=== PATIENT | female | born 1995 | race Caucasian/White ===

== ENCOUNTER 2018-11-06 14:28 | Emergency (ER) | payer OTHER ==
--- NOTE | 2018-11-06 15:12 | RAD REPORT ---
EXAM DESCRIPTION: US - Abdomen Exam Limited - 11/06/2018 3:01 pm CLINICAL HISTORY: ABD PAIN COMPARISON: ABDOMINAL EXAM LIMITED dated 11/07/2013 FINDINGS: The gallbladder demonstrates no gallstones. No pericholecystic fluid or gallbladder wall t hickening. The common bile duct is normal measuring 2 mm. The liver demonstrates no findings of intrahepatic biliary dilatation. IMPRESSION: Unremarkable examination.
[2018-11-06 16:04] LABS: Absolute Lymphocytes (CBC) 3.3 K/uL (0.7-4.9); Absolute Monocytes 0.7 K/uL (0.1-1.3); Absolute Neutrophil 5.2 K/uL (1.8-8.0); Basophils % 0.8 % (0-1.3); Eosinophils % 0.9 % (0-4.4); Hematocrit 43.3 % (36.0-45.0); MPV 8.1 fL (7.6-11.3); Monocytes % 7.1 % (3.3-12.3); RBC Red Blood Cell Count 5.21 M/uL (3.86-4.86)
[2018-11-06] MEDS ORDERED: FAMOTIDINE 20 MG/2 ML VIAL IV ONE (16:06)
[2018-11-06] MEDS ORDERED: NA CHLORIDE 0.9% 1,000 ML ONE (16:06)
[2018-11-06] MEDS ORDERED: ONDANSETRON 4 MG/2 ML VIAL ONE (16:06)
[2018-11-06 16:27] LABS: ALT/SGPT 30 U/L (12-78); AST/SGOT 16 U/L (15-37); Alkaline Phosphatase 124 U/L (45-117); BUN Blood Urea Nitrogen 6 mg/dL (7-18); Bicarbonate 24 mmol/L (21-32); Bilirubin Direct < 0.1 mg/dL (0-0.2); Bilirubin Total 0.3 mg/dL (0.2-1.0); Glucose Level 83 mg/dL (74-106); Lipase 95 U/L (73-393); Potassium 3.8 mmol/L (3.5-5.1); Protein, Total 7.6 g/dL (6.4-8.2); Sodium Level 142 mmol/L (136-145)
--- NOTE | 2018-11-06 17:19 | RAD REPORT ---
EXAM DESCRIPTION: CT - Abdomen Pelvis W Contrast - 11/06/2018 5:10 pm CLINICAL HISTORY: Abdominal pain vomiting and right upper quadrant pain COMPARISON: November 06, 2018 ultrasound TECHNIQUE: Computed axial tomography of the abdomen pelvis was obtained. 100 cc Isovue-300 was admin istered intravenously. Oral contrast was not requested which limits evaluation of bowel. All CT scans are performed using dose optimization technique as appropriate and may include automated exposure control or mA/KV adjustment according to patient size. FINDINGS: The liver, spleen, pancreas, adrenal and kidneys appear unremarkable. There is no evidence of diverticulitis. A normal appendix An adnexal mass is not seen. Tiny umbilical hernia IMPRESSION: No acute abnormality is displayed.
--- NOTE | 2018-11-06 17:32 | ER ---
Nurse's Notes [facility] Name: Malathi Sahu Age: 23 yrs Sex: Female : 1995 Arrival Date: 11/06/2018 Time: 14:30 Bed 25 Private MD: Wilberto Sun T Diagnosis: Unspecified abdominal pain;Nausea and vomiting;Diarrhea, unspecified Presentation: 11/06 14:36 Presenting complaint: Patient states: Sent by Dr. Sun for possible "hot gallbladder". ss Pt c/o RUQ pain with N/V/D x 2 months. Transition of care: patient was not received from another setting of care. Onset of symptoms was August 2018. Risk Assessment: Do you want to hurt yourself or someone else? Patient reports no desire to harm self or others. Initial Sepsis Screen: Does the patient meet any 2 criteria? HR > 90 bpm. Does the patient have a suspected source of infection? No. Patient's initial sepsis screen is negative. Care prior to arrival: None. 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 - Social history:: Smoking status: Patient uses tobacco products, smokes one pack cigarettes per day. - Ebola Screening: : Patient denies exposure to infectious person Patient denies travel to an Ebola-affected area in the 21 days before illness onset. Screenin:03 Abuse screen: Denies threats or abuse. Denies injuries from another. Nutritional rv screening: No deficits noted. Tuberculosis screening: No symptoms or risk factors identified. Fall Risk None identified. Assessment: 16:02 General: Appears in no apparent distress. comfortable, Behavior is calm, cooperative. rv Pain: Complains of pain in abdomen. Neuro: Level of Consciousness is awake, alert, obeys commands, Oriented to person, place, time, situation. Cardiovascular: Capillary refill < 3 seconds. Respiratory: Airway is patent. GI: No signs and/or symptoms were reported involving the gastrointestinal system. : No signs and/or symptoms were reported regarding the genitourinary system. EENT: No signs and/or symptoms were reported regarding the EENT system. Derm: Skin is intact. Musculoskeletal: No signs and/or symptoms reported regarding the musculoskeletal system. 17:30 Reassessment: Patient appears in no apparent distress at this time. Patient and/or rv family updated on plan of care and expected duration. Pain level reassessed. Patient is alert, oriented x 3, equal unlabored respirations, skin warm/dry/pink. Vital Signs: 14:39 BP 147 / 68; Pulse 116; Resp 18; Temp 98.5(TE); Pulse Ox 98% on R/A; Weight 119.29 kg; ss Height 5 ft. 7 in. (170.18 cm); 16:00 BP 121 / 69 RA Supine; Pulse 104; Resp 16 S; Pulse Ox 97% on R/A; rv 16:30 BP 137 / 84 RA Supine; Pulse 91; Resp 19 S; Pulse Ox 100% on R/A; rv 18:07 BP 101 / 69; Pulse 88; Resp 18; Pulse Ox 100% ; rv 14:39 Body Mass Index 41.19 (119.29 kg, 170.18 cm) ED Course: 14:30 Patient arrived in ED. ag5 14:31 Wilberto Sun MD is Private Physician. ag5 14:37 Triage completed. ss 14:39 Arm band placed on right wrist. ss 15:00 Ultrasound completed. aa4 15:00 Note: PT RETURNED TO WAITING ROOM. aa4 15:01 US Abdomen Limited In Process Unspecified. EDMS 15:02 Leonardo Neil NP is PHCP. pm1 15:02 Los Dickerson MD is Attending Physician. pm1 15:34 Radiology exam delayed due to lab results not completed at this time. test vm2 not completed at this time. 15:44 Ac Shin, JOSE ANGEL is Primary Nurse. rv 15:50 Inserted saline lock: 22 gauge in left forearm, using aseptic technique. Blood rv collected. 16:03 Patient has correct armband on for positive identification. Bed in low position. Call rv light in reach. Side rails up X 1. Adult w/ patient. Pulse ox on. NIBP on. 16:11 Radiology exam delayed due to lab results not completed at this time. (BUN/Creatinine). nj 17:[address] via wheelchair. 2 17:10 CT Abd/Pelvis - W/Contrast: IV contrast only In Process Unspecified. EDMS 18:05 No provider procedures requiring assistance completed. IV discontinued, intact, rv bleeding controlled, No redness/swelling at site. Pressure dressing applied. Administered Medications: 15:59 Drug: NS 0.9% 1000 ml Route: IV; Rate: 1000 ml; Site: left forearm; rv 18:04 Follow up: IV Status: Completed infusion; IV Intake: 1000ml rv 15:59 Drug: Zofran 4 mg Route: IVP; Site: left forearm; rv 18:04 Follow up: Response: No adverse reaction rv 15:59 Drug: Pepcid 20 mg Route: IVP; Site: left forearm; rv 18:04 Follow up: Response: No adverse reaction rv 17:30 Drug: GI Cocktail without - (Maalox Suspension 30 ml, Lidocaine Liquid 2 % 15 rv ml) Route: PO; 18:04 Follow up: Response: No adverse reaction rv Intake: 18:04 IV: 1000ml; Total: 1000ml. rv Outcome: 17:32 Discharge ordered by . pm1 18:05 Discharged to home ambulatory. rv 18:05 Condition: good 18:05 Discharge instructions given to patient, Instructed on discharge instructions, follow up and referral plans. medication usage, Demonstrated understanding of instructions, follow-up care, medications, Prescriptions given X 2. 18:07 Patient left the ED. rv Signatures: Dispatcher [employer] EDN[place] Jennifer Beard aa4 Renee Restrepo, RN RN ss Leonardo Neil, MARLY TORSION SPRING COILING MACHINE SETTER pm1 Gennaro Taylor Victoria 2 Ac Shin RN RN Michaelle Vallejo 5
--- NOTE | 2018-11-06 17:32 | EDPHYS ---
Physician Documentation [facility] Name: Malathi Sahu Age: 23 yrs Sex: Female : 1995 Arrival Date: 11/06/2018 Time: 14:30 Bed 25 Private MD: Wilberto Sun T ED Physician Los Dickerson HPI: 11/06 16:23 This 23 yrs old Female presents to ER via Ambulatory with complaints of RUQ pm1 abdominal pain. 16:23 The patient presents with abdominal pain in the right upper quadrant. Onset: The pm1 symptoms/episode began/occurred 2 month(s) ago. The symptoms do not radiate. Associated signs and symptoms: Pertinent positives: nausea, vomiting, and diarrhea, Pertinent negatives: chest pain, constipation, dysuria, fever, shortness of breath, vaginal discharge. The symptoms are described as achy. Modifying factors: The symptoms are alleviated by nothing, the symptoms are aggravated by food. Severity of pain: in the emergency department the pain is actually worse. The patient has not experienced similar symptoms in the past. The patient has been recently seen by a physician: the patient's primary care provider. Patient with on and off RUQ abdominal pain for the past 2 months. Patient reports on and off vomiting and diarrhea for the past 2 months. Patient initially thought it was related to stomach virus. Pain caused by eating food. Saw PCP today and instructed to report to the ER for evaluation of gallbladder. 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 - Social history:: Smoking status: Patient uses tobacco products, smokes one pack cigarettes per day. - Ebola Screening: : Patient denies exposure to infectious person Patient denies travel to an Ebola-affected area in the 21 days before illness onset. ROS: 16:23 Constitutional: Negative for fever, chills, and weight loss, Eyes: Negative for injury, pm1 pain, redness, and discharge, ENT: Negative for injury, pain, and discharge, Neck: Negative for injury, pain, and swelling, Cardiovascular: Negative for chest pain, palpitations, and edema, Respiratory: Negative for shortness of breath, cough, wheezing, and pleuritic chest pain. 16:23 Back: Negative for injury and pain, : Negative for injury, bleeding, discharge, and swelling, MS/Extremity: Negative for injury and deformity, Skin: Negative for injury, rash, and discoloration, Neuro: Negative for headache, weakness, numbness, tingling, and seizure. 16:23 Abdomen/GI: Positive for abdominal pain, nausea, vomiting, and diarrhea, Negative for constipation, hematemesis, rectal bleeding. Exam: 16:23 Constitutional: This is a well developed, well nourished patient who is awake, alert, pm1 and in no acute distress. Head/Face: Normocephalic, atraumatic. Eyes: Pupils equal round and reactive to light, extra-ocular motions intact. Lids and lashes normal. Conjunctiva and sclera are non-icteric and not injected. Cornea within normal limits. Periorbital areas with no swelling, redness, or edema. ENT: Nares patent. No nasal discharge, no septal abnormalities noted. Tympanic membranes are normal and external auditory canals are clear. Oropharynx with no redness, swelling, or masses, exudates, or evidence of obstruction, uvula midline. Mucous membranes moist. Neck: Trachea midline, no thyromegaly or masses palpated, and no cervical lymphadenopathy. Supple, full range of motion without nuchal rigidity, or vertebral point tenderness. No Meningismus. Chest/axilla: Normal chest wall appearance and motion. Nontender with no deformity. No lesions are appreciated. Cardiovascular: Regular rate and rhythm with a normal S1 and S2. No gallops, murmurs, or rubs. Normal PMI, no JVD. No pulse deficits. Respiratory: Lungs have equal breath sounds bilaterally, clear to auscultation and percussion. No rales, rhonchi or wheezes noted. No increased work of breathing, no retractions or nasal flaring. 16:23 Back: No spinal tenderness. No costovertebral tenderness. Full range of motion. Skin: Warm, dry with normal turgor. Normal color with no rashes, no lesions, and no evidence of cellulitis. MS/ Extremity: Pulses equal, no cyanosis. Neurovascular intact. Full, normal range of motion. 16:23 Abdomen/GI: Inspection: obese Bowel sounds: normal, Palpation: abdomen is soft and non-tender, in all quadrants, mass, is not appreciated, rebound tenderness, is not appreciated. 16:23 Neuro: Orientation: is normal, Motor: is normal, Sensation: is normal, no obvious gross deficits, Gait: is steady, at a normal pace, without difficulty. Vital Signs: 14:39 BP 147 / 68; Pulse 116; Resp 18; Temp 98.5(TE); Pulse Ox 98% on R/A; Weight 119.29 kg; ss Height 5 ft. 7 in. (170.18 cm); 16:00 BP 121 / 69 RA Supine; Pulse 104; Resp 16 S; Pulse Ox 97% on R/A; rv 16:30 BP 137 / 84 RA Supine; Pulse 91; Resp 19 S; Pulse Ox 100% on R/A; rv 18:07 BP 101 / 69; Pulse 88; Resp 18; Pulse Ox 100% ; rv 14:39 Body Mass Index 41.19 (119.29 kg, 170.18 cm) ss MDM: 15:03 Patient medically screened. [facility] 16:23 Data reviewed: vital signs. pm1 17:25 Data interpreted: Pulse oximetry: on room air is 98 %. Interpretation: normal. pm1 Counseling: I had a detailed discussion with the patient and/or guardian regarding: the historical points, exam findings, and any diagnostic results supporting the discharge/admit diagnosis. 17:30 Counseling: I had a detailed discussion with the patient and/or guardian regarding: lab pm1 results, radiology results, the need for outpatient follow up, for definitive care, a oval or circular glass cutter, possible endoscopy, to return to the emergency department if symptoms worsen or persist or if there are any questions or concerns that arise at home. 11/06 15:22 Order name: Basic Metabolic Panel; Complete Time: 16:29 pm1 11/06 15:22 Order name: CBC with Diff; Complete Time: 16:22 pm1 11/06 15:22 Order name: Creatinine for Radiology; Complete Time: 16:57 pm1 11/06 15:22 Order name: Hepatic Function; Complete Time: 16:29 pm1 11/06 15:22 Order name: Lipase; Complete Time: 16:29 pm1 11/06 15:36 Order name: Urine Dipstick--Ancillary (enter results) 11/06 14:48 Order name: US Abdomen Limited; Complete Time: 15:13 kb 11/06 15:22 Order name: IV Saline Lock; Complete Time: 17:05 pm1 11/06 15:29 Order name: CT Abd/Pelvis - W/Contrast: IV contrast only; Complete Time: 17:24 pm1 11/06 15:36 Order name: Urine --Ancillary (enter results) 11/06 15:22 Order name: Labs collected and sent; Complete Time: 17:05 pm1 11/06 15:22 Order name: Urine Dipstick-Ancillary (obtain specimen); Complete Time: 17:05 pm1 11/06 15:22 Order name: Urine Test (obtain specimen); Complete Time: 17:05 pm1 Administered Medications: 15:59 Drug: NS 0.9% 1000 ml Route: IV; Rate: 1000 ml; Site: left forearm; rv 18:04 Follow up: IV Status: Completed infusion; IV Intake: 1000ml rv 15:59 Drug: Zofran 4 mg Route: IVP; Site: left forearm; rv 18:04 Follow up: Response: No adverse reaction rv 15:59 Drug: Pepcid 20 mg Route: IVP; Site: left forearm; rv 18:04 Follow up: Response: No adverse reaction rv 17:30 Drug: GI Cocktail without - (Maalox Suspension 30 ml, Lidocaine Liquid 2 % 15 rv ml) Route: PO; 18:04 Follow up: Response: No adverse reaction rv Disposition: 11/07 07:01 Co-signature as Attending Physician, Los Dickerson MD I agree with the assessment and carolin plan of care. Disposition: 11/06/18 17:32 Discharged to Home. Impression: Unspecified abdominal pain, Nausea and vomiting, Diarrhea, unspecified. - Condition is Stable. - Discharge Instructions: Abdominal Pain, Adult. - Prescriptions for Pepcid 20 mg Oral Tablet - take 1 tablet by ORAL route every 12 hours for 10 days; 20 tablet. Zofran 4 mg Oral Tablet - take 1 tablet by ORAL route every 12 hours As needed; 20 tablet. - Medication Reconciliation Form, Thank You Letter, Antibiotic Education, Prescription Opioid Use form. - Follow up: Emergency Department; When: As needed; Reason: Worsening of condition. Follow up: Private Physician; When: 2 - 3 days; Reason: Recheck today's complaints, Continuance of care, Re-evaluation by your physician. - Problem is new. - Symptoms have improved. Signatures: Dispatcher [employer] EDMS Los Dickerson MD MD cha Smirch, Shelby, JOSE ANGEL RN ss Leonardo Neil, TOILET ATTENDANT TOILET ATTENDANT pm1 Ac Shin RN RN rv Corrections: (The following items were deleted from the chart) 11/06 18:07 17:32 11/06/2018 17:32 Discharged to Home. Impression: Unspecified abdominal pain; rv Nausea and vomiting; Diarrhea, unspecified. Condition is Stable. Forms are Medication Reconciliation Form, Thank You Letter, Antibiotic Education, Prescription Opioid Use. Follow up: Emergency Department; When: As needed; Reason: Worsening of condition. Follow up: Private Physician; When: 2 - 3 days; Reason: Recheck today's complaints, Continuance of care, Re-evaluation by your physician. Problem is new. Symptoms have improved. pm1
[2018-11-06] MEDS ORDERED: MAGNE/ALUM HYDROXD 30 ML UCUP ONE (17:44)
[2018-11-06] MEDS ORDERED: LIDOCAINE VISCOUS 2% SOLN 15 ML UDC ONE (17:44)
[2018-11-06 19:02] VITALS: TEMP 98.5
[2018-11-06 19:04] VITALS: O2SAT 100
[2018-11-06 19:06] VITALS: BP 101/69
[2018-11-06 20:09] LABS: Urine Blood NEGATIVE (NEG); Urine Glucose NEGATIVE (NEG); Urine Protein NEGATIVE (NEG)
== END 2018-11-06 18:07 | disposition home or self-care (01) ==
LOC: ER 14:28
DX: R10.9 Unspecified abdominal pain (principal); R11.2 Nausea with vomiting, unspecified; R19.7 Diarrhea, unspecified; F32.9 Major depressive disorder, single episode, unspecified; F41.9 Anxiety disorder, unspecified; F17.210 Nicotine dependence, cigarettes, uncomplicated; Z79.899 Other long term (current) drug therapy
CPT/HCPCS: 36415; 74177; 76705; 80048; 80076; 81003; 81025; 83690; 85025; 96361; 96374; 96375; 99284; J2405; J7030; Q9967

== ENCOUNTER 2023-01-02 06:14 | Emergency (ER) | payer BC ==
--- OUTSIDE RECORDS SUMMARY | 2023-01-02 06:18 | XMS REPORT | Continuity of Care Document ---
:1995 Author Organization [facility] t Address [address] [place] [id number] Care Team Providers Name Role Phone PCP, PATIENT DOES NOT HAVE A Primary Care Physician UnavailARMINDA Kelley Attending Clinician Unavailable ARMINDA GAINES Attending Clinician Unavailable Celia Nj PA-C Attending Clinician Luisana Carrillo MD Attending Clinician LUISANA CARRILLO Attending Clinician Unavailable CELIA NJ Attending Clinician Unavailable Doctor Unassigned, [place] Attending Clinician Unavailable Nurse, [facility] Attending Clinician Unavailable Payers Payer Name Policy Type Policy Number Effective Date Expiration Date S ource Problems Condition Condition Condition Status Onset Resolution Last Treating Co mments Source Name Details Category Date Date Treatment Clinician Date Presence Presence Disease Active 2019-07 Unive rs of 52 mg of 52 mg 1-23 ity of [place] trel-relea trel-relea 00 Me dical sing sing Branch intrauteri intrauteri ne device ne device (IUD) (IUD) Morbid Morbid Disease Active 2018-07 Univers obesity obesity 1-20 [place] of [place] body [place] mass index mass index 00 [place] dical of of Branch 40.0-49.9 40.0-49.9 Allergies, Adverse Reactions, Alerts Allergy Allergy Status Severity Reaction(s) Onset Inactive Treating Comm ents Source Name Type Date Date Clinician CEFPROZI DRUG Active Swelling 2018-07 Univer s L INGREDI -20 ity of 00:00: [address] CEFDINIR DRUG Active Swelling 2018-07 Univer s INGREDI - ity of 00:00: [place] 00 Medical Branch Cefprozi Propensi Active Swelling 2018-07 Univ ers l ty to 1-20 ity of adverse 00:00: [place] reaction Medical s Branch Cefdinir Propensi Active Swelling 2018-07 Univ ers ty to 1-20 ity of adverse 00:00: [place] reaction 00 Medical s Branch Social History Social Habit Start Date Stop Date Quantity Comments Source Exposure to Not sure University of SARS-CoV-2 [facility] (event) Branch History of Cigarette Smoker Universi ty of tobacco use [facility] Sex Assigned At Universit y of [facility] Tobacco use and 2020-06-16 2020-06-16 Never used Universit y of exposure 00:00:00 00:00:00 [facility] Alcohol intake 2020-06-16 2020-06-16 Current drinker of Un iversity of 00:00:00 00:00:00 alcohol (finding) [facility] Cigarettes smoked 2020-06-16 2020-06-16 Univers ity of current (pack per 00:00:00 00:00:00 [facility] ) - Reported Branch Tobacco Comment 2019-06-13 2019-06-13 vape Universit y of 00:00:00 00:00:00 [facility] Alcohol Comment 2019-06-13 2019-06-13 occcasionaly Univers ity of 00:00:00 00:00:00 [facility] Smoking Status Start Date Stop Date Source Current every day smoker 2020-06-16 00:00:00 Uni versity of [facility] Medications Ordered Filled Start Stop Current Ordering Indication Dosage Frequency Signature Comments Components Source Medication Medication Date Date Medication? 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 Mon Branch 06/16/20 at 2030, Routine miSOPROStoL 2020- Yes [id number] Take one Univers 200 mcg 1-11 tablet ity of tablet 00:00: night [place] 00 before Medical procedure, Branch then take one tablet morning of procedure miSOPROStoL 2020- Yes [id number] Take one Univers 200 mcg 1-11 tablet ity of tablet 00:00: night [place] 00 before Medical procedure, Branch then take one tablet morning of procedure miSOPROStoL 2020- Yes [id number] Take one Univers 200 mcg 1-11 tablet ity of tablet 00:00: night [place] 00 before Medical procedure, Branch then take one tablet morning of procedure miSOPROStoL 2019- Yes [id number] Take one Univers 200 mcg 1-11 tablet ity of tablet 00:00: night [place] 00 before Medical procedure, Branch then take one tablet morning of procedure miSOPROStoL 2020-1 Yes [id number] Take one Univers 200 mcg 1-11 tablet ity of tablet 00:00: night [place] 00 before Medical procedure, Branch then take one tablet morning of procedure miSOPROStoL 2020- Yes [id number] Take one Univers 200 mcg 1-11 tablet ity of tablet 00:00: night [place] 00 before Medical procedure, Branch then take one tablet morning of procedure miSOPROStoL 2020- Yes [id number] Take one Univers 200 mcg 1-11 tablet ity of tablet 00:00: night [place] 00 before Medical procedure, Branch then take one tablet morning of procedure miSOPROStoL 2020- Yes [id number] Take one Univers 200 mcg 1-11 tablet ity of tablet 00:00: night [place] 00 before Medical procedure, Branch then take one tablet morning of procedure medroxyPROG 2019-0 2020- No 150mg Univ ers ESTERone 03-17 08-24 ity of (DEPO-PROVE 21:00: 20:09 [place] RA) 00 :00 Medical injection Branch 150 mg medroxyPROG 2020-0 2020- No 150mg 150 mg, U nivers ESTERone 8-24 08-24 Intramuscu ity of (DEPO-PROVE 21:00: 20:09 lar, ONCE, [place] RA) 00 :00 1 dose, Medical injection Mon Branch 150 mg 03/17/20 at 1600, Routine asenapine 2020-[address] 10 Univ ers maleate 8-24 mg under ity of (SAPHRIS) 19:58: [place] tongue [place] 10 mg 30 daily. Medical sublinguql Branch tablet asenapine 2020-[address] 10 Univ ers maleate 8-24 mg under ity of (SAPHRIS) 19:58: [place] tongue [place] 10 mg 30 daily. Medical sublinguql Branch tablet asenapine 2020-[address] 10 Univ ers maleate 8-24 mg under ity of (SAPHRIS) 19:58: [place] tongue [place] 10 mg 30 daily. Medical sublinguql Branch tablet asenapine 2020-[address] 10 Univ ers maleate 8-24 mg under ity of (SAPHRIS) 19:58: the tongue [place] 10 mg 30 daily. Medical sublinguql Branch tablet asenapine 2020-[address] 10 Univ ers maleate 8-24 mg under ity of (SAPHRIS) 19:58: [place] tongue [place] 10 mg 30 daily. Medical sublinguql Branch tablet asenapine 2020-[address] 10 Univ ers maleate 8-24 mg under ity of (SAPHRIS) 19:58: [place] tongue [place] 10 mg 30 daily. Medical sublinguql Branch tablet asenapine 2020-[address] 10 Univ ers maleate 8-24 mg under ity of (SAPHRIS) 19:58: [place] tongue [place] 10 mg 30 daily. Medical sublinguql Branch tablet asenapine 2020-[address] 10 Univ ers maleate 8-24 mg under ity of (SAPHRIS) 19:58: [place] tongue [place] 10 mg 30 daily. Medical sublinguql Branch tablet asenapine 2020-[address] 10 Univ ers maleate 8-24 mg under ity of (SAPHRIS) 19:58: [place] tongue [place] 10 mg 30 daily. Medical sublinguql Branch tablet amoxicillin 2020-0 2020- No Unive rs -clavulanat 8- 11-11 ity of e 875-125 00:00: 00:00 [place] mg per 00 :00 Medical tablet Branch bromphenira 2020-0 2020- No Unive rs mine-pseudo - 11-11 ity of ephedrine-D 00:00: 00:00 [place] M 00 :00 Medical mg/5 mL Branch syrup methylPREDN 2019-0 2020- No Unive rs ISolone 4 03-13 11-11 ity of mg tablets 00:00: 00:00 [place] 00 :00 Medical Branch amoxicillin 2020-0 2020- No Unive rs -clavulanat 8- 11-11 ity of e 875-125 00:00: 00:00 [place] mg per 00 :00 Medical tablet Branch bromphenira 2020-0 2020- No Unive rs mine-pseudo 03-13- ity of ephedrine-D 00:00: 00:00 [facility] 00 :00 Medical mg/5 mL Branch syrup methylPREDN 2019-0 2020- No Unive rs ISolone 4 03-13-11 ity of mg tablets 00:00: 00:00 [place] 00 :00 Medical Branch medroxyPROG 2020-0 2020- No 150mg Univ ers ESTERone 12-17- ity of (DEPO-PROVE 21:30: 20:28 [place] RA) 00 :00 Medical injection Branch 150 mg medroxyPROG 2020-0 2020- No 150mg 150 mg, U nivers ESTERone 12-17- Intramuscu ity of (DEPO-PROVE 21:30: 20:28 lar, ONCE, [place] RA) 00 :00 1 dose, Medical injection Tue Branch 150 mg 12/18/19 at 1630, Routine medroxyPROG 2020-0 2020- No 150mg Univ ers ESTERone 09-14- ity of (DEPO-PROVE 21:30: 20:37 [place] RA) 00 :00 Medical injection Branch 150 mg medroxyPROG 2020-0 2020- No 150mg 150 mg, U nivers ESTERone 09-14- Intramuscu ity of (DEPO-PROVE 21:30: 20:37 lar, ONCE, [place] RA) 00 :00 1 dose, Medical injection Fri Branch 150 mg 09/14/19 at 1530, Routine escitalopra 2018- Yes 20mg Take 20 mg Univers m oxalate 1-11 by mouth ity of 20 mg 00:00: daily. [place] tablet 00 Medical Branch escitalopra 2018-07 Yes 20mg Take 20 mg Univers m oxalate 1-11 by mouth ity of 20 mg 00:00: daily. [place] tablet Medical Branch escitalopra 2018-07 Yes 20mg Take 20 mg Univers m oxalate 1-11 by mouth ity of 20 mg 00:00: daily. [place] tablet Medical Branch escitalopra 2018-07 Yes 20mg Take 20 mg Univers m oxalate 1-11 by mouth ity of 20 mg 00:00: daily. [place] tablet Medical Branch escitalopra 2018-07 Yes 20mg Take 20 mg Univers m oxalate 1-11 by mouth ity of 20 mg 00:00: daily. [place] tablet Medical Branch escitalopra 2018-07 Yes 20mg Take 20 mg Univers m oxalate 1-11 by mouth ity of 20 mg 00:00: daily. [place] tablet Medical Branch escitalopra 2018-07 Yes 20mg Take 20 mg Univers m oxalate 1-11 by mouth ity of 20 mg 00:00: daily. [place] tablet Medical Branch escitalopra 2018-07 Yes 20mg Take 20 mg Univers m oxalate 1-11 by mouth ity of 20 mg 00:00: daily. [place] tablet Medical Branch escitalopra 2018-07 Yes 20mg Take 20 mg Univers m oxalate 1-11 by mouth ity of 20 mg 00:00: daily. [place] tablet Medical Branch escitalopra 2018-07 Yes 20mg Take 20 mg Univers m oxalate 1-11 by mouth ity of 20 mg 00:00: daily. [place] tablet Medical Branch escitalopra 2018-07 Yes 20mg Take 20 mg Univers m oxalate 1-11 by mouth ity of 20 mg 00:00: daily. [place] tablet [facility] Branch lamoTRIgine 2018-07 Yes 200mg Take 200 U nivers 200 mg 0-21 mg by ity of tablet 00:00: mouth. [place] [facility] Branch lamoTRIgine 2018-07 Yes 200mg Take 200 U nivers 200 mg 0-21 mg by ity of tablet 00:00: mouth. [facility] Branch lamoTRIgine 2018-07 Yes 200mg Take 200 U nivers 200 mg 0-21 mg by ity of tablet 00:00: mouth. [place] [facility] lamoTRIgine 2018-07 Yes 200mg Take 200 U nivers 200 mg 0-21 mg by ity of tablet 00:00: mouth. [place] [facility] Branch lamoTRIgine 2018-07 Yes 200mg Take 200 U nivers 200 mg 0-21 mg by ity of tablet 00:00: mouth. [place] [facility] lamoTRIgine 2018-07 Yes 200mg Take 200 U nivers 200 mg 0-21 mg by ity of tablet 00:00: mouth. [place] [facility] lamoTRIgine 2018-07 Yes 200mg Take 200 U nivers 200 mg 0-21 mg by ity of tablet 00:00: mouth. [place] [facility] lamoTRIgine 2018-07 Yes 200mg Take 200 U nivers 200 mg 0-21 mg by ity of tablet 00:00: mouth. [place] [facility] lamoTRIgine 2018-07 Yes 200mg Take 200 U nivers 200 mg 0-21 mg by ity of tablet 00:00: mouth. [place] [facility] lamoTRIgine 2018-07 Yes 200mg Take 200 U nivers 200 mg 0-21 mg by ity of tablet 00:00: mouth. [place] [facility] lamoTRIgine 2018-07 Yes 200mg Take 200 U nivers 200 mg 0-21 mg by ity of tablet 00:00: mouth. [address] Branch ketoconazol 2018-07 Yes Univer s e 2 % cream 0-18 ity of 00:00: [address] Branch mupirocin 2 2018-07 Yes Univer s % ointment 0-18 ity of 00:00: [address] ketoconazol 2018-07 Yes Univer s e 2 % cream 0-18 ity of 00:00: [address] ketoconazol 2018-07 Yes Univer s e 2 % cream 0-18 ity of 00:00: [place] [address] Medical Branch mupirocin 2 2018-07 Yes Univer s % ointment 0-18 ity of 00:00: [address] Branch ketoconazol 2018-07 Yes Univer s e 2 % cream 0-18 ity of 00:00: [place] [address] Medical Branch mupirocin 2 2018-07 Yes Univer s % ointment 0-18 ity of 00:00: [place] 00 Medical Branch mupirocin 2 2019-1 Yes Univer s % ointment 0-18 ity of 00:00: [place] 00 Medical Branch ketoconazol 2019-1 Yes Univer s e 2 % cream 0-18 ity of 00:00: [place] 00 Medical Branch mupirocin 2 2019-1 Yes Univer s % ointment 0-18 ity of 00:00: [place] 00 Medical Branch ketoconazol 2019-1 Yes Univer s e 2 % cream 0-18 ity of 00:00: [place] 00 Medical Branch mupirocin 2 2019-1 Yes Univer s % ointment 0-18 ity of 00:00: [place] 00 Medical Branch ketoconazol 2019-1 Yes Univer s e 2 % cream 0-18 ity of 00:00: [place] 00 Medical Branch mupirocin 2 2019-1 Yes Univer s % ointment 0-18 ity of 00:00: [place] 00 Medical Branch ketoconazol 2019-1 Yes Univer s e 2 % cream 0-18 ity of 00:00: [place] 00 Medical Branch mupirocin 2 2019-1 Yes Univer s % ointment 0-18 ity of 00:00: [place] 00 Medical Branch ketoconazol 2019-1 Yes Univer s e 2 % cream 0-18 ity of 00:00: [place] 00 Medical Branch mupirocin 2 2019-1 Yes Univer s % ointment 0-18 ity of 00:00: [place] 00 Medical Branch ketoconazol 2019-1 Yes Univer s e 2 % cream 0-18 ity of 00:00: [place] 00 Medical Branch mupirocin 2 2019-1 Yes Univer s % ointment 0-18 ity of 00:00: [place] 00 Medical Branch ketoconazol 2019-1 Yes Univer s e 2 % cream 0-18 ity of 00:00: [place] 00 Medical Branch mupirocin 2 2019-1 Yes Univer s % ointment 0-18 ity of 00:00: [place] 00 Medical Branch montelukast 2019-0 Yes 10mg 10 mg. Univ ers 10 mg 9-19 ity of tablet 00:00: [place] 00 Medical Branch montelukast 2019-0 Yes 10mg 10 mg. Univ ers 10 mg 9-19 ity of tablet 00:00: [place] 00 Medical Branch montelukast 2019-0 Yes 10mg 10 mg. Univ ers 10 mg 9-19 ity of tablet 00:00: [place] 00 Medical Branch montelukast 2019-0 Yes 10mg 10 mg. Univ ers 10 mg 9-19 ity of tablet 00:00: [place] 00 Medical Branch montekast 2019-0 Yes 10mg 10 mg. Univ ers 10 mg 9-19 ity of tablet 00:00: [place] 00 Medical Branch sulfamethox 2019-0 Yes Univer s azole-trime 9-19 ity of thoprim 00:00: [place] 800-160 mg 00 Medical per tablet Branch montelukast 2019-0 Yes 10mg 10 mg. Univ ers 10 mg 9-19 ity of tablet 00:00: [place] [facility] Yes 10mg 10 mg. Univ ers 10 mg 9-19 ity of tablet 00:00: [place] [address] Medical [facility] Yes 10mg 10 mg. Univ ers 10 mg 9-19 ity of tablet 00:00: [place] 00 Medical Branch sulfamethox 2019-0 Yes Univer s azole-trime 9-19 ity of thoprim 00:00: [place] 800-160 mg 00 Medical per tablet Branch montelukast 2019-0 Yes 10mg 10 mg. Univ ers 10 mg 9-19 ity of tablet 00:00: [place] Medical Branch sulfamethox 2019-0 Yes Univer s azole-trime 9-19 ity of thoprim 00:00: [place] 800-160 mg 00 Medical per tablet Branch montelukast 2019-0 Yes 10mg 10 mg. Univ ers 10 mg 9-19 ity of tablet 00:00: [place] 00 Medical Branch montelukast 2019-0 Yes 10mg 10 mg. Univ ers 10 mg 9-19 ity of tablet 00:00: [place] 00 Medical Branch sulfamethox 2019-0 2020- No Unive rs azole-trime -19 11-11 ity of thoprim 00:00: 00:00 [place] 800-160 mg 00 :00 Medical per tablet Branch sulfamethox 2019-0 2020- No Unive rs azole-trime -19 11-11 ity of thoprim 00:00: 00:00 [place] 800-160 mg 00 :00 Medical per [facility] Branch Vital Signs Vital Name Observation Time Observation Value Comments Source Systolic blood 2020-08-07 21:19:00 138 mm[Hg] Univer sity of pressure [place] [facility] Diastolic blood 2020-08-07 21:19:00 95 mm[Hg] Unive rsity of pressure [place] [facility] Heart rate 2020-08-07 21:19:00 127 /min Universi ty of [place] [facility] Body temperature 2020-08-07 21:15:00 36.78 [facility] Univ ersity of [place] [facility] Respiratory rate 2020-08-07 21:15:00 18 /min Univ ersity of [place] [facility] Body height 2020-08-07 21:15:00 170.2 cm Universi ty of [place] [facility] Body weight 2020-08-07 21:15:00 129.275 kg Universi ty of [place] [facility] BMI 2020-08-07 21:15:00 44.64 kg/m2 Universi ty of [place] [facility] Systolic blood 2020-06-16 22:21:00 146 mm[Hg] Univer sity of pressure [place] [facility] Diastolic blood 2020-06-16 22:21:00 101 mm[Hg] Unive rsity of pressure [place] [facility] Heart rate 2020-06-16 22:11:00 105 /min Universi ty of [place] [facility] Body temperature 2020-06-16 22:11:00 37.06 [facility] Univ ersity of [place] [facility] Respiratory rate 2020-06-16 22:11:00 18 /min Univ ersity of [place] [facility] Body height 2020-06-16 22:11:00 170.2 cm Universi ty of [place] [facility] Body weight 2020-06-16 22:11:00 128.368 kg Universi ty of [place] [facility] BMI 2020-06-16 22:11:00 44.32 kg/m2 Universi ty of [place] [facility] Systolic blood 2020-06-04 20:35:00 133 mm[Hg] Univer sity of pressure [place] [facility] Diastolic blood 2020-06-04 20:35:00 94 mm[Hg] Unive rsity of pressure [place] [facility] Heart rate 2020-06-04 20:35:00 122 /min Universi ty of [place] [facility] Body temperature 2020-06-04 20:35:00 36.94 [facility] Univ ersity of [place] [facility] Respiratory rate 2020-06-04 20:35:00 20 /min Univ ersity of [place] [facility] Body height 2020-06-04 20:35:00 171.5 cm Universi ty of [place] [facility] Body weight 2020-06-04 20:35:00 127.007 kg Universi ty of [place] [facility] BMI 2020-06-04 20:35:00 43.21 kg/m2 Universi ty of [place] [facility] Systolic blood 2020-03-17 19:55:00 137 mm[Hg] Univer sity of pressure [place] [facility] Diastolic blood 2020-03-17 19:55:00 92 mm[Hg] Unive rsity of pressure [place] [facility] Heart rate 2020-03-17 19:55:00 110 /min Universi ty of [place] [facility] Body temperature 2020-03-17 19:55:00 36.72 [facility] Univ ersity of [place] [facility] Respiratory rate 2020-03-17 19:55:00 18 /min Univ ersity of [place] [facility] Body height 2020-03-17 19:55:00 170.2 cm Universi ty of [place] [facility] Body weight 2020-03-17 19:55:00 126.463 kg Universi ty of [place] [facility] BMI 2020-03-17 19:55:00 43.67 kg/m2 Universi ty of [place] [facility] Systolic blood 2019-12-18 20:25:00 129 mm[Hg] Univer sity of pressure [place] [facility] Diastolic blood 2019-12-18 20:25:00 90 mm[Hg] Unive rsity of pressure [place] [facility] Heart rate 2019-12-18 20:25:00 94 /min Universi ty of [place] [facility] Body temperature 2019-12-18 20:25:00 36.89 [facility] Univ ersity of [place] [facility] Respiratory rate 2019-12-18 20:25:00 18 /min Univ ersity of [place] [facility] Body height 2019-12-18 20:25:00 170.2 cm Universi ty of [place] [facility] Body weight 2019-12-18 20:25:00 125.193 kg Universi ty of [place] [facility] BMI 2019-12-18 20:25:00 43.23 kg/m2 Universi ty of [place] [facility] Systolic blood 2019-09-14 20:30:00 129 mm[Hg] Univer sity of pressure [place] [facility] Diastolic blood 2019-09-14 20:30:00 86 mm[Hg] Unive rsity of pressure [facility] Heart rate 2019-09-14 20:30:00 110 /min [facility] Body temperature 2019-09-14 20:30:00 36.72 [facility] 2019-09-14 20:30:00 18 /min [facility] Body height 2019-09-14 20:30:00 170.2 cm [facility] Body weight 2019-09-14 20:30:00 124.558 kg [facility] BMI 2019-09-14 20:30:00 43.01 kg/m2 [facility] Procedures Procedure Date / Time Performed Performing Clinician [facility] e ASSIGNMENT OF BENEFITS 2020-06-16 21:35:36 Doctor Unassigned, No [facility] POCT TEST 2020-06-16 00:00:00 Luisana Carrillo [facility] Encounters Start End Encounter Admission Attending Care Care Encounter Source Date/Time Date/Time Type Type Clinicians Facility Department ID 2020-08-07 2020-08-07 Office Celia Nj [facility] [id number] Univers 15:04:31 15:39:54 Visit Luisana Carrillo [place] [id number] [facility] [id number] [place] cos[place] Professio [id number] [address] 2020-08-07 2020-08-07 Outpatient R LUISANA CARRILLO [facility] [id number] Univers 15:00[facility] 2020-07-23 Outpatient R ONDINA [facility] [id number] Univers 13:00:00 13:00:00 [facility] 2020-07-21 2020-07-21 Outpatient R LUISANA CARRILLO [facility] [id number] Univers 08:00:00 [facility] 2020-07-16 2020-07-16 Outpatient R LUISANA CARRILLO [facility] [id number] Univers 10:30:00 10:30:00 ity of [facility] 2020-07-16 2020-07-16 Telephone Luisana Carrillo [facility] [id number] Univers 00:00:00 00:00:00 [place] [id number] i [place] [id number] [place] [phone] [address] 2020-06-16 2020-06-16 Office Luisana Carrillo [facility] [id number] Univers 15:37:48 16:44:33 Visit [place] [id number] [place] [id number] [place] [phone] [address] 2020-06-16 2020-06-16 Outpatient R LUISANA CARRILLO [facility] [id number] Univers 15:30:00 15:30:00 ity [facility] 2020-06-16 2020-06-16 Orders Doctor HAYDEN [id number] Univers 00:00:00 00:00:00 Only Unassigned, DAHIANA [id number] ity of [place] [facility] [id number] [place] as [id number] [address] 2020-06-09 2020-06-09 Outpatient R [facility] [id number] Univers 14:30:00 14:30:00 ity [facility] 2020-06-04 2020-06-04 Office Ondina [facility] [id number] Univers 14:31:01 15:04:52 Visit [place] [id number] [place] [id number] [place] [id number] [address] 2020-06-04 2020-06-04 Outpatient R ONDINA [facility] [id number] Univers 14:30:00 14:30:00 CELIA ware [facility] 2020-03-17 2020-03-17 Nurse Nurse, [facility] [id number] Univers 14:38:18 14:53:18 Visit Celia [place] [id number] ity of [place] [id number] [place] [phone] [place] dical [place]al [address] [place] [address] 2020-03-17 2020-03-17 Outpatient R [facility] [id number] Univers 14:30:00 14:30:00 ity [facility] 2019-12-18 2019-12-18 Nurse Nurse, [facility] [id number] [facility] 14:54:23 15:26:40 Visit Celia [place] [id number] ity of [place] [id number] [place] [id number] [place] dical [place] [address] [place] [address] 2019-12-18 2019-12-18 Outpatient R [facility] [id number] Univers 15:00:00 15:00:00 ity [facility] 2019-12-14 2019-12-14 Outpatient R [facility] [id number] Univers 14:30:00 14:30:00 ity [facility] 2019-09-14 2019-09-14 Nurse Nurse, [facility] [id number] Univers 14:04:38 14:41:02 Visit Luisana Carrillo [id number] ity [place] [id number] [place] [phone] [address] Results Test Description Test Time Test Comments Results Result Comments Source POCT TEST 2020-06-16 22:29:00 Test Item Value Reference Range Interpretation Comme nts POCT PREG (test code = 1605) Negative On board controls acceptable with C Line (test code = 3574) Yes POCT PREG LOT # (test code = 3575) [facility]test [facility] 3576[id number] 22:29:00 Test Item Value Reference Range Interpretation Comments POCT PREG (test code = 1605) Negative On board controls acceptable with C Yes Line (test code = 3574) POCT PREG LOT # (test code = 3575) POCT PREG TEST DATE (test code = 3576) [facility]
[2023-01-02 06:57] LABS: Absolute Lymphocytes (CBC) 2.8 K/uL (0.7-4.9); Hematocrit 44.9 % (36.0-45.0); Lymphocytes % 23.2 % (15.3-44.8); MCV 91.2 fL (80-100); MPV 7.2 fL (7.6-11.3); RBC Red Blood Cell Count 4.92 M/uL (3.86-4.86)
[2023-01-02 07:18] LABS: Albumin 3.7 g/dL (3.4-5.0); Bilirubin Total 0.4 mg/dL (0.2-1.0); Potassium 4.1 mEq/L (3.5-5.1); Protein, Total 7.7 g/dL (6.4-8.2); Troponin High Sensitivity 10.6 pg/mL (<58.9)
--- NOTE | 2023-01-02 07:41 | RAD REPORT ---
EXAM DESCRIPTION: Rolando Single View01/02/2023 6:45 am CLINICAL HISTORY: cough COMPARISON: 2020 FINDINGS: The lungs appear clear of acute infiltrate. The heart is normal size IMPRESSION: No acute abnormalities displayed
--- NOTE | 2023-01-02 08:55 | EDPHYS ---
Physician Documentation [facility] Name: Malathi Sahu Age: 27 yrs Sex: Female : 1995 Arrival Date: 01/02/2023 Time: 06:14 Bed 13 Private MD: ED Physician Gavin Whitman HPI: 01/02 06:43 This 27 yrs old Female presents to ER via Ambulatory with complaints of Ankle bs3 Swelling, Feet Swelling. 06:43 27-year-old female history of bipolar disorder on lithium and multiple other bs3 psychiatric medication who has had significant weight gain over the last 6 months presents with foot and ankle swelling she is unsure when it started but it has been ongoing for some amount of time she saw her primary care doctor who did blood work and started her on a water pill but her symptoms are still there and therefore she came in her symptoms are better in the morning and worse at night she notes that there were 3 times a size as they currently are. Historical: - Allergies: 06:38 Cefzil; pf1 06:38 Omnicef; pf1 - Home Meds: 06:38 Lamictal 200 mg Oral tab 1 tab once daily [Active]; Trazodone Oral [Active]; pf1 propranolol Oral [Active]; Pristiq oral [Active]; Vraylar oral [Active]; - PMHx: 06:38 Anxiety; Depression; pf1 - Immunization history:: Adult Immunizations up to date, Client reports receiving the 1st dose of the Covid vaccine, Last tetanus immunization: < 10 years ago Flu vaccine is not up to date. - Social history:: Smoking status: Patient reports the use of cigarette tobacco products, smokes one pack cigarettes per day. Patient/guardian denies using alcohol, street drugs. ROS: 06:43 Constitutional: Negative for fever, chills bs3 06:43 All other systems are negative. Exam: 06:43 Constitutional: This is a well developed, well nourished patient who is awake, alert, bs3 and in no acute distress. Head/Face: Normocephalic, atraumatic. Eyes: Pupils equal round and reactive to light, extra-ocular motions intact. Lids and lashes normal. ENT: mmm, no posterior phyarngeal erythema Neck: Trachea midline, no thyromegaly, no neck stiffness Chest/axilla: Normal chest wall appearance and motion. Nontender with no deformity. No lesions are appreciated. Cardiovascular: Regular rate and rhythm with a normal S1 and S2. symmetric pulses in upper extremities Respiratory: Lungs have equal breath sounds bilaterally, clear to auscultation, no respiratory distress 06:43 Constitutional: She appears anxious otherwise no acute distress Chest/axilla: Normal chest wall appearance and motion. Nontender with no deformity. No lesions are appreciated. Cardiovascular: Tachycardic, normal S1-S2 Skin: Warm, dry with normal turgor. Normal color with no rashes, no lesions, and no evidence of cellulitis. MS/ Extremity: 1+ pitting edema bilaterally Neuro: Awake and alert, GCS 15, oriented to person, place, time, and situation. Cranial nerves II-XII grossly intact. Motor strength 5/5 in all extremities. Sensory grossly intact. Psych: Awake, alert, with orientation to person, place and time. Behavior, mood, and affect are within normal limits. 06:43 Sinus tachycardia at [address] elevations or depressions no right axis deviation QTc 447 as interpreted by myself Vital Signs: 06:21 BP 154 / 105; Pulse 108; Resp 18; Temp 98.2; Pulse Ox 99% on R/A; Weight 155 kg; Height pf1 5 ft. 7 in. ; Pain 0/10; 06:54 BP 147 / 119; Pulse 112; Resp 22; Pulse Ox 95% on R/A; kl 07:00 BP 147 / 119; Pulse 96; Resp 16; Pulse Ox 96% ; bp 08:13 BP 139 / 99; Pulse 100; Resp 29; Pulse Ox 94% ; bp 06:21 Body Mass Index 53.52 (155.00 kg, 170.18 cm) pf1 06:21 Pain Scale: Adult pf1 MDM: 06:20 Patient medically screened. bs3 06:43 Differential diagnosis: Possible renal failure versus liver failure versus congestive bs3 heart failure possible medication side effect or related to her body habitus (bmi 56). Data reviewed: vital signs, nurses notes. 08:53 Counseling: I had a detailed discussion with the patient and/or guardian regarding: the rn historical points, exam findings, and any diagnostic results supporting the discharge/admit diagnosis, lab results, radiology results, the need for outpatient follow up, to return to the emergency department if symptoms worsen or persist or if there are any questions or concerns that arise at home. Special discussion: I discussed with the patient/guardian in detail that at this point there is no indication for admission to the hospital. It is understood, however, that if the symptoms persist or worsen the patient needs to return immediately for re-evaluation. ED course: No acute findings to explain weight gain or swelling, could be her psychiatric medications, recommend f/u with her prescribing doctor for reassessment . 01/02 06:31 Order name: CBC with Diff; Complete Time: 06:59 bs3 01/02 06:31 Order name: Comprehensive Metabolic Panel; Complete Time: 07:42 bs3 01/02 06:31 Order name: BNP; Complete Time: 07:42 bs3 01/02 06:31 Order name: Troponin High Sensitivity; Complete Time: 07:42 bs3 01/02 06:48 Order name: D-Dimer; Complete Time: 08:26 lg3 01/02 06:31 Order name: Chest Single View XRAY; Complete Time: 07:42 bs3 01/02 06:31 Order name: EKG - Nurse/Tech; Complete Time: 06:43 bs3 Administered Medications: No medications were administered Disposition Summary: 01/02/23 08:54 Discharge Ordered Location: Home rn Problem: an ongoing problem rn Symptoms: have improved rn Condition: Stable rn Diagnosis - Edema, unspecified rn - Abnormal weight gain rn Followup: rn - With: Private Physician - When: As needed - Reason: Recheck today's complaints, Re-evaluation by your physician Discharge Instructions: - Discharge Summary Sheet rn - Edema rn - Preventing Unhealthy Weight Gain, Adult rn Forms: - Medication Reconciliation Form rn - Thank You Letter rn - Antibiotic product marketing intern - Prescription Opioid Use rn - Work release form eb Signatures: Dispatcher [employer] Gavin Calloway MD MD rn Stein, Brandon, MD MD bs3 Kathleen Keen RN RN pf1
--- NOTE | 2023-01-02 08:55 | ER ---
Nurse's Notes [facility] Name: Malathi Sahu Age: 27 yrs Sex: Female : 1995 Arrival Date: 01/02/2023 Time: 06:14 Bed 13 Private MD: Diagnosis: Edema, unspecified;Abnormal weight gain Presentation: 01/02 06:21 Chief complaint: Patient states: bilateral lower extremity swelling/feet,onset 2 weeks. pf1 Patient also intermittient SOB,onset 6 months, since weight gain and intermittent lightheadedness with dizziness,onset 2 days, which resolved. Patient stated her PCP started her on a water pill recently for the leg and feet swelling. 06:21 Coronavirus screen: Vaccine status: Patient reports receiving the 1st dose of the Covid pf1 vaccine. J \T\ J Client denies travel out of the [place] in the last 14 days. At this time, the client does not indicate any symptoms associated with coronavirus-19. Ebola Screen: Patient negative for fever greater than or equal to 101.5 degrees Fahrenheit, and additional compatible Ebola Virus Disease symptoms. Initial Sepsis Screen: Does the patient meet any 2 criteria? HR > 90 bpm. No. Patient's initial sepsis screen is negative. Does the patient have a suspected source of infection? No. Patient's initial sepsis screen is negative. Risk Assessment: Do you want to hurt yourself or someone else? Patient reports no desire to harm self or others. 06:21 Method Of Arrival: Ambulatory pf1 06:21 Acuity: BROCK 3 pf1 Historical: - Allergies: 06:38 Cefzil; pf1 06:38 Omnicef; pf1 - Home Meds: 06:38 Lamictal 200 mg Oral tab 1 tab once daily [Active]; Trazodone Oral [Active]; pf1 propranolol Oral [Active]; Pristiq oral [Active]; Vraylar oral [Active]; - PMHx: 06:38 Anxiety; Depression; pf1 - Immunization history:: Adult Immunizations up to date, Client reports receiving the 1st dose of the Covid vaccine, Last tetanus immunization: < 10 years ago Flu vaccine is not up to date. - Social history:: Smoking status: Patient reports the use of cigarette tobacco products, smokes one pack cigarettes per day. Patient/guardian denies using alcohol, street drugs. Screenin:54 [facility] ED Fall Risk Assessment (Adult) History of falling in the last 3 months, kl including since admission No falls in past 3 months (0 pts) Confusion or Disorientation No (0 pts) Intoxicated or Sedated No (0 pts) Impaired Gait No (0 pts) Mobility Assist Device Used No (0 pt) Altered Elimination Score/Fall Risk Level 0 - 2 = Low Risk Oriented to surroundings, Maintained a safe environment. Abuse screen: Denies threats or abuse. Nutritional screening: No deficits noted. Tuberculosis screening: No symptoms or risk factors identified. Assessment: 06:52 General: Appears comfortable, obese, Behavior is calm, cooperative. Pain: Denies pain. kl Neuro: No deficits noted. Cardiovascular: Rhythm is sinus rhythm Parent/caregiver reports patient has had shortness of breath, since bilateral lower extremity swelling. Respiratory: Reports shortness of breath on exertion the patient has moderate shortness of breath. GI: No deficits noted. No signs and/or symptoms were reported involving the gastrointestinal system. : No deficits noted. No signs and/or symptoms were reported regarding the genitourinary system. EENT: No deficits noted. No signs and/or symptoms were reported regarding the EENT system. 07:00 Reassessment: RECD REPORT FROM IMELDA WALTER. 27YO WF P/W BLE EDEMA AND HTN. bp 08:15 Reassessment: Patient appears in no apparent distress at this time. Patient is alert, bp oriented x 3, equal unlabored respirations, skin warm/dry/pink. 08:59 Reassessment: PT DC HOME AMBULATORY. bp Vital Signs: 06:21 BP 154 / 105; Pulse 108; Resp 18; Temp 98.2; Pulse Ox 99% on R/A; Weight 155 kg; Height pf1 5 ft. 7 in. ; Pain 0/10; 06:54 BP 147 / 119; Pulse 112; Resp 22; Pulse Ox 95% on R/A; kl 07:00 BP 147 / 119; Pulse 96; Resp 16; Pulse Ox 96% ; bp 08:13 BP 139 / 99; Pulse 100; Resp 29; Pulse Ox 94% ; bp 06:21 Body Mass Index 53.52 (155.00 kg, 170.18 cm) pf1 06:21 Pain Scale: Adult pf1 ED Course: 06:18 Patient arrived in ED. bp1 06:20 Tereso Ferrell MD is Attending Physician. bs3 06:38 Triage completed. pf1 06:43 Imelda Marquez RN is Primary Nurse. lg3 06:47 Chest Single View XRAY In Process Unspecified. EDMS 06:48 CBC with Diff Sent. lg3 06:48 Comprehensive Metabolic Panel Sent. lg3 06:48 BNP Sent. lg3 06:48 Troponin High Sensitivity Sent. lg3 06:48 D-Dimer Sent. lg3 06:52 No provider procedures requiring assistance completed. Inserted saline lock: 22 gauge kl in left forearm, using aseptic technique. Blood collected. 06:52 D-Dimer Sent. kl 06:54 Patient has correct armband on for positive identification. Bed in low position. Call kl light in reach. Client placed on continuous cardiac and pulse oximetry monitoring. NIBP monitoring applied. 06:58 Troponin High Sensitivity Sent. kl 07:02 Primary Nurse role handed off by Imelda Marquez RN bp 07:02 Mark Khan RN is Primary Nurse. bp 07:06 Attending Physician role handed off by Tereso Ferrell MD rn 07:06 Gavin Whitman MD is Attending Physician. rn 08:59 IV discontinued, intact, bleeding controlled, No redness/swelling at site. Pressure bp dressing applied. Administered Medications: No medications were administered Medication: 06:54 VIS not applicable for this client. kl Outcome: 08:54 Discharge ordered by . rn 08:59 Discharged to home ambulatory. bp 08:59 Condition: stable 08:59 Discharge instructions given to patient, Instructed on discharge instructions, follow up and referral plans. Demonstrated understanding of instructions, follow-up care. 09:00 Patient left the ED. bp Signatures: Dispatcher [employer] EDMS Jaleesa Echols RN RN kl Nieto, Roman, MD MD rn Peltier, Brian, RN RN bp Imelda Marquez, JOSE ANGEL RN lg3 Ramona Trejo bp1 Tereso Ferrell MD MD bs3 Kathleen Keen RN RN pf1
[2023-01-02 09:20] VITALS: TEMP 98.2
[2023-01-02 09:28] VITALS: BP 139/99; O2SAT 94
--- NOTE | 2023-01-03 12:05 | EKG ---
Test Date: 2023-01-02 Test Time: 06:40:10 In Class Special Education Teacher: KATIE MEASUREMENT RESULTS: Intervals: Rate: 108 CO: 122 QRSD: 72 QT: 334 QTc: 447 [place]: P: 20 CO: 122 QRS: -14 T: 56 INTERPRETIVE STATEMENTS: Sinus tachycardia Otherwise normal ECG No previous ECG available for comparison Electronically Signed On 01-03-23 12:00:45 CDT by Jeff Harmon
== END 2023-01-02 09:00 | disposition home or self-care (01) ==
LOC: ER 06:14
DX: R60.9 Edema, unspecified (principal); R63.5 Abnormal weight gain; Z68.43 Body mass index [BMI] 50.0-59.9, adult; F41.9 Anxiety disorder, unspecified; F32.A Depression, unspecified; F17.210 Nicotine dependence, cigarettes, uncomplicated; Z88.1 Allergy status to other antibiotic agents
CPT/HCPCS: 36415; 71045; 80053; 83880; 84484; 85025; 85379; 93005; 99284

== ENCOUNTER 2024-06-05 22:22 | Emergency (ER) | payer SELFPAY ==
--- OUTSIDE RECORDS SUMMARY | 2024-06-05 22:24 | XMS REPORT | Continuity of Care Document ---
Author Name Unknown Address [address] [facility] [address] [facility] Address [address] [facility] 1 [address] [place] [address] Care Team Providers Care Small Arms Repairer Name Role Phone PCP, PATIENT DOES NOT HAVE A Primary Care Physic yadi Unavailable [email or web address] Attending Clinician ARMINDA Mcqueen Attending Clinician ARMINDA Christensen Attending Clinician Celia Parra PA-C Attending Clinician [phone] Luisana Carrillo MD Attending Clinician [phone] LUISANA CARRILLO Attending Clinician Unavailable CELIA [place] Attending Clinician Unavailable Doctor Unassigned, [place] Attending Clinician U [place] Nurse, [facility] Attending Clinician Un available [email or web address] Admitting Clinician Genaro lopez Payers Payer Name Policy Type Policy Number Effective Date Expirati on Date Source IRMATARA O [id number] 2022 00:00:00 Problems Condition Name Condition Details Condition Category Status Onset Date Resolution Date Last Treatment Date Treating Clinician Comments Source Presence of 52 mg levonorges trel-relea sing intrauteri ne device (IUD) Presence of 52 mg levonorges trel-relea sing intrauteri ne device (IUD) Disease Active 2019-07 00:00: 00 [facility] Morbid obesity with body mass index of 40.0-49.9 Morbid obesity with body mass index of 40.0-49.9 Disease Active 2018-07 00:00: 00 [facility] Allergies, Adverse Reactions, Alerts Allergy Name Allergy Type Status Severity Reaction(s) Onset Date Inactive Date Treating Clinician Comments Source CEFPROZI L DRUG INGREDI Active Swelling 2018-07 00:00: 00 [facility] CEFDINIR DRUG INGREDI Active Swelling 2018-07 00:00: 00 [facility] Cefprozi l Propensi ty to adverse reaction s Active Swelling 2018-07 00:00: 00 [facility] Cefdinir Propensi ty to adverse reaction s Active Swelling 2018-07 00:00: 00 [facility] Social History Social Habit Start Date Stop Date Quantity Comments Source Exposure to SARS-CoV-2 (event) Not sure [facility] History of tobacco use Cigarette Smoker [facility] Sex Assigned At [facility] Tobacco use and exposure 2020-06-16 00:00:00 2020-06-16 00:00:00 Never used [facility] Alcohol intake 2020-06-16 00:00:00 2020-06-16 00:00:00 Current drinker of alcohol (finding) [facility] Cigarettes smoked current (pack per day) - Reported 2020-06-16 00:00:00 2020-06-16 00:00:00 [facility] Tobacco Comment 2019-06-13 00:00:00 2019-06-13 00:00:00 vape [facility] Alcohol Comment 2019-06-13 00:00:00 2019-06-13 00:00:00 occcasionaly [facility] Smoking Status Start Date Stop Date Source Current every day smoker 2020-06-16 00:00:00 [facility] Medications Ordered Medication Name Filled Medication Name Start Date Stop Date Current Medication? Ordering Clinician Indication Dosage Frequency Signature (SIG) Comments Components Source levonorgest reL (MIRENA) IUD 1 Device 2019-07 02:30: 00 06-17 01:30 :00 No 1{devic e} [facility] miSOPROStoL 200 mcg tablet 2019-07 00:00: 00 Yes [id number] Take one tablet night before procedure, then take one tablet morning of procedure [facility] medroxyPROG ESTERone (DEPO-PROVE RA) injection 150 mg 03-17 21:00: 00 03-17 20:09 :00 No 150mg [facility] asenapine maleate (SAPHRIS) 10 mg sublinguql tablet 03-17 19:58: [address] 10 mg under the tongue daily. [facility] amoxicillin -clavulanat e 875-125 mg per tablet 03-13 00:00: 06-04 00:00 :00 No [facility] bromphenira mine-pseudo ephedrine-D M 2-30-10 mg/5 mL syrup 03-13 00:00: 00 06-04 00:00 :00 No [facility] methylPREDN ISolone 4 mg tablets 03-13 00:00: 00 06-04 00:00 :00 No [facility] medroxyPROG ESTERone (DEPO-PROVE RA) injection 150 mg 12-17 21:30: 00 12-17 20:28 :00 No 150mg [facility] medroxyPROG ESTERone (DEPO-PROVE RA) injection 150 mg 09-14 21:30: 00 09-14 20:37 :00 [facility] escitalopra m oxalate 20 mg tablet 2018-07 00:00: 00 Yes 20mg Take 20 mg by mouth daily. [facility] lamoTRIgine 200 mg tablet 2018-07 00:00: 00 Yes 200mg Take 200 mg by mouth. [facility] ketoconazol e 2 % cream 2018-07 00:00: 00 Yes [facility] mupirocin 2 % ointment 2018-07 00:00: 00 Yes [facility] montelukast 10 mg tablet 04-12 00:00: 00 Yes 10mg 10 mg. [facility] sulfamethox azole-trime thoprim 800-160 mg per tablet 04-12 00:00: 00 06-04 00:00 :00 No [facility] Vital Signs Vital Name Observation Time Observation Value Comments S milady Systolic blood pressure 2020-08-07 21:19:00 138 mm[Hg] [facility] Diastolic blood pressure 2020-08-07 21:19:00 95 mm[Hg] [facility] Heart rate 2020-08-07 21:19:00 127 /min [facility] Body temperature 2020-08-07 21:15:00 36.78 [facility] Respiratory rate 2020-08-07 21:15:00 18 /min [facility] Body height 2020-08-07 21:15:00 170.2 cm [facility] Body weight 2020-08-07 21:15:00 129.275 kg [facility] BMI 2020-08-07 21:15:00 44.64 kg/m2 [facility] Systolic blood pressure 2020-06-16 22:21:00 146 mm[Hg] [facility] Diastolic blood pressure 2020-06-16 22:21:00 101 mm[Hg] [facility] Heart rate 2020-06-16 22:11:00 105 /min [facility] Body temperature 2020-06-16 22:11:00 37.06 [facility] Respiratory rate 2020-06-16 22:11:00 18 /min [facility] Body height 2020-06-16 22:11:00 170.2 cm [facility] Body weight 2020-06-16 22:11:00 128.368 kg [facility] BMI 2020-06-16 22:11:00 44.32 kg/m2 [facility] Systolic blood pressure 2020-06-04 20:35:00 133 mm[Hg] [facility] Diastolic blood pressure 2020-06-04 20:35:00 94 mm[Hg] [facility] Heart rate 2020-06-04 20:35:00 122 /min [facility] Body temperature 2020-06-04 20:35:00 36.94 [facility] Respiratory rate 2020-06-04 20:35:00 20 /min [facility] Body height 2020-06-04 20:35:00 171.5 cm [facility] Body weight 2020-06-04 20:35:00 127.007 kg [facility] BMI 2020-06-04 20:35:00 43.21 kg/m2 [facility] Systolic blood pressure 2020-03-17 19:55:00 137 mm[Hg] [facility] Diastolic blood pressure 2020-03-17 19:55:00 92 mm[Hg] [facility] Heart rate 2020-03-17 19:55:00 110 /min [facility] Body temperature 2020-03-17 19:55:00 36.72 [facility] Respiratory rate 2020-03-17 19:55:00 18 /min [facility] Body height 2020-03-17 19:55:00 170.2 cm [facility] Body weight 2020-03-17 19:55:00 126.463 kg [facility] BMI 2020-03-17 19:55:00 43.67 kg/m2 [facility] Systolic blood pressure 2019-12-18 20:25:00 129 mm[Hg] [facility] Diastolic blood pressure 2019-12-18 20:25:00 90 mm[Hg] [facility] Heart rate 2019-12-18 20:25:00 94 /min [facility] Body temperature 2019-12-18 20:25:00 36.89 [facility] Respiratory rate 2019-12-18 20:25:00 18 /min [facility] Body height 2019-12-18 20:25:00 170.2 cm [facility] Body weight 2019-12-18 20:25:00 125.193 kg [facility] BMI 2019-12-18 20:25:00 43.23 kg/m2 [facility] Systolic blood pressure 2019-09-14 20:30:00 129 mm[Hg] [facility] Diastolic blood pressure 2019-09-14 20:30:00 86 mm[Hg] [facility] Heart rate 2019-09-14 20:30:00 110 /min [facility] Body temperature 2019-09-14 20:30:00 36.72 [facility] Respiratory rate 2019-09-14 20:30:00 18 /min [facility] Body height 2019-09-14 20:30:00 170.2 cm [facility] Body weight 2019-09-14 20:30:00 124.558 kg [facility] BMI 2019-09-14 20:30:00 43.01 kg/m2 [facility] Procedures Procedure Date / Time Performed Performing Clinicia n Source ASSIGNMENT OF BENEFITS 2020-06-16 21:35:36 Docto r Unassigned, [place] [facility] POCT TEST 2020-06-16 00:00:00 Luisana Carrillo [facility] Encounters Start Date/Time End Date/Time Encounter Type Admission Type Attending [facility] Care Facility Care Department Encounter ID Source 2023-05-22 00:00:00 2023-05-22 00:00:00 Outpatient [email or web address]_S PRIV [facility] [id number] [facility] 2023-01-24 16:30:00 2023-01-24 16:30:00 Outpatient ARMINDA DIAZ MARISOL [facility] [id number] [facility] 2020-08-07 15:04:31 2020-08-07 15:39:54 Office Visit Celia Nj Vien Cam [facility] [id number] [facility] 2020-08-07 15:00:00 2020-08-07 15:00:00 Outpatient LUISANA KLEIN [facility] [id number] [facility] 2020-07-23 13:00:00 2020-07-23 13:00:00 Outpatient CELIA BA [facility] [id number] [facility] 2020-07-21 08:00:00 2020-07-21 08:00:00 Outpatient R LUISANA CARRILLO [facility] [id number] [facility] 2020-07-16 10:30:00 2020-07-16 10:30:00 Outpatient R LUISANA CARRILLO [facility] [id number] [facility] 2020-07-16 00:00:00 2020-07-16 00:00:00 [facility] [id number] 134 [id number] [facility] 2020-06-16 15:37:48 2020-06-16 16:44:33 Office Visit Luisana Carrillo [facility] Building 1..840.114 [id number] [id number] [facility] 2020-06-16 15:30:00 2020-06-16 15:30:00 Outpatient R LUISANA CARRILLO [facility] [id number] [facility] 2020-06-16 00:00:00 2020-06-16 00:00:00 Orders Only Doctor Unassigned, [place]ard [facility] [id number] [facility] 2020-06-09 14:30:00 2020-06-09 14:30:00 Outpatient R [facility] [id number] [facility] 2020-06-04 14:31:01 2020-06-04 15:04:52 Office Visit Celia Nj [facility] Building [id number] [facility] 2020-06-04 14:30:00 2020-06-04 14:30:00 Outpatient R CELIA NJ [facility] [id number] [facility] 2020-03-17 14:38:18 2020-03-17 14:53:18 Nurse Visit Nurse, [facility] Celia Nj [facility] [id number] 134 [id number] [facility] 2020-03-17 14:30:00 2020-03-17 14:30:00 Outpatient R [facility] [id number] [facility] 2019-12-18 14:54:23 2019-12-18 15:26:40 Nurse Visit Nurse, [facility] Celia Nj [facility] 1..840.114 [id number] [id number] [facility] 2019-12-18 15:00:00 2019-12-18 15:00:00 Outpatient R [facility] [id number] [facility] 2019-12-14 14:30:00 2019-12-14 14:30:00 Outpatient R [facility] [id number] [facility] 2019-09-14 14:04:38 2019-09-14 14:41:02 Nurse Visit Nurse, [facility] Keturah Carrillosadie Lowry [facility] 1..840.114 [id number] [id number] [facility] Results Test Description Test Time Test Comments Results Result Co mments Source [id number] 22:29:00* Test Item Value Reference Range Interpretation Comme nts POCT PREG (test code = 1605) Negative On board controls acceptable with C Line (test code = 3574) Yes POCT PREG LOT # (test code = 3575) POCT PREG TEST DATE ( test code = 3576) [facility]
[2024-06-05 23:15] LABS: Specific Gravity 1.015 (1.005-1.030); Urine Bacteria None Seen /HPF (<20); Urine Bilirubin NEGATIVE (Negative); Urine Blood 3+ (Negative); Urine Clarity Extremely Turbid (Clear); Urine Color Light-Orange (Yellow); Urine Culture Reflex Order REFLEXED; Urine Glucose NEGATIVE (Negative); Urine Ketones NEGATIVE (Negative); Urine Microscopic Reflex YN ORDER UMIC; Urine Nitrite NEGATIVE (Negative); Urine Protein 3+ (Negative); Urine RBC >50 /HPF (None Seen); Urine Urobilinogen Normal (Normal); Urine WBC >50 /HPF (<5); Urine WBC Clump Many /HPF (None Seen); Urine pH 6.5 (5.0-7.0)
[2024-06-05 23:18] LABS: Specific Gravity 1.015 (1.005-1.030)
--- NOTE | 2024-06-05 23:20 | EDPHYS ---
Physician Documentation [facility] Name: Malathi Sahu Age: 29 yrs Sex: Female : 1995 Arrival Date: 06/05/2024 Time: 22:22 Bed IW1 Private MD: ED Physician Rosalino Barker HPI: 06/05 22:43 This 29 yrs old Female presents to ER via Unassigned with complaints of Pain With kb Urination, Urinary Incontinence. 22:43 Pt is a 29 year old female who presents for urinary frequency, urgency, dysuria that kb started 2-3 days ago. Denies fever, vomiting. REports nausea, but believes it is due to nerves. Aggravating by urinating, no alleviating factors. . 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 - Infectious Disease History:: Denies. - Social history:: Smoking status: Patient reports the use of cigarette tobacco products, smokes one pack cigarettes per day. ROS: 22:43 Constitutional: As per HPI kb Exam: 22:43 Constitutional: This is a well developed, well nourished patient who is awake, alert, kb and in no acute distress. Head/Face: Normocephalic, atraumatic. ENT: Moist Mucous membranes Cardiovascular: Regular rate Respiratory: Respirations even and unlabored. No increased work of breathing. Talking in full sentences Abdomen/GI: Soft, non-tender. No distention Back: No spinal tenderness. No costovertebral tenderness. Full range of motion. Skin: Warm, dry with normal turgor. Normal color. MS/ Extremity: Pulses equal, no cyanosis. Neurovascular intact. Full, normal range of motion. Neuro: Awake and alert, GCS 15, oriented to person, place, time, and situation. Vital Signs: 22:54 BP 171 / 86; Pulse 111; Resp 17; Temp 97.8; Pulse Ox 96% ; Weight 164.65 kg; Height 5 vc1 ft. 7 in. ; Pain 7/10; 22:54 Body Mass Index 56.85 (164.65 kg, 170.18 cm) vc1 22:54 Pain Scale: Adult vc1 MDM: 22:27 Medical Screening Exam initiated kb 22:45 Differential diagnosis: UTI, pyelonephritis. Data reviewed: vital signs, nurses notes. kb 23:19 Counseling: I had a detailed discussion with the patient and/or guardian regarding the kb historical points, exam findings, and any diagnostic results supporting the discharge/admit diagnosis, lab results, the need for outpatient follow up, a family practitioner, to return to the emergency department if symptoms worsen or persist or if there are any questions or concerns that arise at home. 23:19 Test considered but Not performed: CT: ct considered but pt has no abd or CVA kb tenderness, afebrile, nontoxic in appearacne. 06/05 22:46 Order name: Test, Urine; Complete Time: 23:19 kb 06/05 22:46 Order name: Urinalysis w/ reflexes; Complete Time: 23:19 06/05 23:20 Order name: Urine Culture EDMS Administered Medications: 23:56 Drug: Phenazopyridine PO 200 mg PO once Route: PO; vc1 06/06 01:21 Follow up: Response: Medication administered at discharge. 1 06/05 23:56 Drug: Amoxicillin-Clavulanate PO 875 mg PO once Route: PO; vc1 06/06 00:00 Follow up: Response: No adverse reaction; Medication administered at discharge. vc1 Disposition: 20:52 Co-signature as Attending Physician, Rosalino Barker MD I agree with the assessment sp4 and plan of care. I reviewed the patient's care provided by the Advanced Practice Provider and agree with the diagnosis and treatment plan. Disposition Summary: 06/05/24 23:20 Discharge Ordered Notes: Location: Home kb Condition: Stable kb Diagnosis - UTI/ Urinary tract infection, site not specified kb Followup: kb - With: Emergency Department - When: As needed - Reason: Worsening of condition Followup: kb - With: Private Physician - When: 2 - 3 days - Reason: Recheck today's complaints, Continuance of care, Re-evaluation by your physician Discharge Instructions: - Discharge Summary Sheet kb - Urinary Tract Infection, Adult, [id number] kb Forms: - Medication Reconciliation Form kb - Antibiotic Education kb - Prescription Opioid Use kb - Patient Portal Instructions kb - Leadership Thank You Letter kb Prescriptions: - Augmentin 875-125 mg Oral Tablet - take 1 tablet ORAL route every 12 hours for 10 days; 20 tablet; Refills: 0, kb Product Selection Permitted - Pyridium 200 mg Oral Tablet - take 1 tablet ORAL route every 8 hours for 3 days; 9 tablet; Refills: 0, kb Product Selection Permitted Signatures: Dispatcher [employer] Malissa Foster FNP-C FNP-Ckb Calcote, Vanessa RN RN vc1 Rosalino Barker MD MD sp4
--- NOTE | 2024-06-05 23:20 | ER ---
Nurse's Notes [facility] Name: Malathi Sahu Age: 29 yrs Sex: Female : 1995 Arrival Date: 06/05/2024 Time: 22:22 Bed IW1 Private MD: Diagnosis: UTI/ Urinary tract infection, site not specified Presentation: 06/05 22:50 Chief complaint: Patient states: yanez with peeing feels like she has to pee all the vc1 time and pain in right lower back. Coronavirus screen: Client denies travel out of the [place] in the last 14 days. At this time, the client does not indicate any symptoms associated with coronavirus-19. Ebola Screen: Patient negative for fever greater than or equal to 101.5 degrees Fahrenheit, and additional compatible Ebola Virus Disease symptoms Patient denies exposure to infectious person. Patient denies travel to an Ebola-affected area in the 21 days before illness onset. No symptoms or risks identified at this time. Initial Sepsis Screen: Does the patient have a suspected source of infection? No. Patient's initial sepsis screen is negative. Risk Assessment: Do you want to hurt yourself or someone else? Patient reports no desire to harm self or others. Onset of symptoms was June 03, 2024. 22:50 Method Of Arrival: Ambulatory vc1 22:50 Acuity: BROCK 4 vc1 22:54 Initial Sepsis Screen: Does the patient meet any 2 criteria? HR > 90 bpm. No. Patient's vc1 initial sepsis screen is negative. Triage Assessment: 23:00 General: Appears in no apparent distress. uncomfortable, obese, well groomed, well vc1 developed, well nourished, Behavior is calm, cooperative, appropriate for age. Pain: Complains of pain in low back area and meatus. EENT: No deficits noted. No signs and/or symptoms were reported regarding the EENT system. Neuro: Level of Consciousness is awake, alert, obeys commands, Oriented to person, place, time, situation, Appropriate for age. Cardiovascular: Capillary refill < 3 seconds Patient's skin is warm and dry. Respiratory: Airway is patent Respiratory effort is even, unlabored, Respiratory pattern is regular, symmetrical, Breath sounds are clear bilaterally. GI: No deficits noted. No signs and/or symptoms were reported involving the gastrointestinal system. : Reports burning with urination, urinary frequency. Derm: Skin is intact, is healthy with good turgor, Skin is dry, Skin is normal, Skin temperature is warm. Musculoskeletal: Circulation, motion, and sensation intact. Range of motion: intact in all extremities. 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 - Infectious Disease History:: Denies. - Social history:: Smoking status: Patient reports the use of cigarette tobacco products, smokes one pack cigarettes per day. Screenin:51 [facility] ED Fall Risk Assessment (Adult) History of falling in the last 3 months, vc1 including since admission No falls in past 3 months (0 pts) Confusion or Disorientation No (0 pts) Intoxicated or Sedated No (0 pts) Impaired Gait No (0 pts) Mobility Assist Device Used No (0 pt) Altered Elimination Yes (1 pt) Score/Fall Risk Level 0 - 2 = Low Risk Oriented to surroundings, Maintained a safe environment, Educated pt \T\ family on fall prevention, incl call for assistance when getting out of bed. Abuse screen: Denies threats or abuse. Nutritional screening: No deficits noted. Tuberculosis screening: No symptoms or risk factors identified. Vital Signs: 22:54 BP 171 / 86; Pulse 111; Resp 17; Temp 97.8; Pulse Ox 96% ; Weight 164.65 kg; Height 5 vc1 ft. 7 in. ; Pain 7/10; 22:54 Body Mass Index 56.85 (164.65 kg, 170.18 cm) vc1 22:54 Pain Scale: Adult vc1 ED Course: 22:25 Patient arrived in ED. [id number] 22:27 [facility]oland [facility]-C [facility] kb 22:27 Rosalino Barker MD is Attending Physician. kb 22:51 Triage completed. vc1 22:54 Arm band placed on left wrist. vc1 23:00 seen in [facility]. vc1 23:04 Test, Urine Sent. vc1 23:04 Urinalysis w/ reflexes Sent. vc1 06/06 00:13 Provided Education on: continue abx. vc1 00:15 No provider procedures requiring assistance completed. Patient did not have IV access vc1 during this emergency room visit. Administered Medications: 06/05 23:56 Drug: Phenazopyridine PO 200 mg PO once Route: PO; vc1 06/06 01:21 Follow up: Response: Medication administered at discharge. vc1 06/05 23:56 Drug: Amoxicillin-Clavulanate PO 875 mg PO once Route: PO; vc1 06/06 00:00 Follow up: Response: No adverse reaction; Medication administered at discharge. vc1 Medication: 00:13 VIS not applicable for this client. vc1 Outcome: 06/05 23:20 Discharge ordered by . raquel 06/06 00:10 Discharged to home ambulatory, vc1 Condition: good Discharge instructions given to patient, Instructed on discharge instructions, follow up and referral plans. medication usage, Demonstrated understanding of instructions, follow-up care, medications, Prescriptions given X 2, 00:13 Patient left the ED. vc1 Signatures: Malissa Noland, FITTING ROOM OPERATOR-C FITTING ROOM OPERATOR-Laura Saucedo [id number] Nannette aCrdozo, RN RN vc1
[2024-06-05] MEDS ORDERED: PHENAZOPYRIDINE 100MG TAB PO ONE (23:44)
[2024-06-05] MEDS ORDERED: AMOX/K CLAV 875 MG TAB ONE (23:44)
[2024-06-06 00:48] VITALS: BP 171/86; TEMP 97.8; O2SAT 96
== END 2024-06-06 00:13 | disposition home or self-care (01) ==
LOC: ER 22:22
DX: N39.0 Urinary tract infection, site not specified (principal)
CPT/HCPCS: 81001; 81025; 87086; 87088; 99283

== ENCOUNTER 2024-09-15 09:24 | Emergency (ER) | payer SELFPAY ==
[2024-09-15] MEDS ORDERED: IPRATROPIUM BROM 0.5MG/2.5ML ONE (11:04)
[2024-09-15] MEDS ORDERED: ALBUTEROL 2.5 MG/3 ML NEB SOL ONE (11:04)
[2024-09-15 11:35] LABS: Influenza A Ag Negative; Influenza B Ag Negative; SARS-CoV-2 Antigen Rapid Res Negative (Negative)
--- NOTE | 2024-09-15 12:05 | RAD REPORT ---
EXAMINATION: TWO VIEW CHEST XR CLINICAL INDICATION: Female, 29 years old. [facility] MAIN Congestion;Cough Bed: TECHNIQUE: 2 view radiographs of the chest were performed. COMPARISON: 01/02/2023 FINDINGS: Soft tissue superimposition and mild rotation limits evaluation. The lungs are well inflated and ness r. No pneumothorax or sizable effusion. The heart is normal in size. Mediastinal contours are unremarkable. IMPRESSION: No acute or significant abnormalities.
--- NOTE | 2024-09-15 12:25 | EDPHYS ---
Physician Documentation [facility] Name: Malathi Sahu Age: 29 yrs Sex: Female : 1995 Arrival Date: 09/15/2024 Time: 09:24 Bed 12 Private MD: ED Physician Los Dickerson HPI: 09/15 09:45 This 29 yrs old Female presents to ER via Unassigned with complaints of Flu Symptoms. kb 09:45 Pt is a 29 year old female who presents for cough, congestion, shortness of breath, kb subjective low grade fever, weakness that started a week ago. . 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 - Infectious Disease History:: Denies. - Social history:: Smoking status: Patient reports the use of cigarette tobacco products, smokes one pack cigarettes per day. ROS: 09:53 Constitutional: As per HPI kb Exam: 09:53 Constitutional: This is a well developed, well nourished patient who is awake, alert, kb and in no acute distress. Head/Face: Normocephalic, atraumatic. ENT: Moist Mucous membranes Cardiovascular: Regular rate Respiratory: Respirations even and unlabored. No increased work of breathing. Talking in full sentences Abdomen/GI: Soft, non-tender. No distention Skin: Warm, dry with normal turgor. Normal color. MS/ Extremity: Pulses equal, no cyanosis. Neurovascular intact. Full, normal range of motion. Neuro: Awake and alert, GCS 15, oriented to person, place, time, and situation. Vital Signs: 09:56 BP 148 / 100; Pulse 93; Resp 21; Temp 98.5; Pulse Ox 94% on R/A; Weight 155.58 kg; ap3 Height 5 ft. 7 in. ; Pain 0/10; 12:49 BP 135 / 84; Pulse 86; Resp 15; Pulse Ox 97% ; jl7 09:56 Body Mass Index 53.72 (155.58 kg, 170.18 cm) ap3 09:56 Pain Scale: Adult ap3 MDM: 09:31 Medical Screening Exam initiated kb 12:24 Differential diagnosis: flu, covid, uri, sinusitis, pneumonia. Data reviewed: vital kb signs, nurses notes. Historians other than the Patient: Spouse/Significant Other: significant other. Counseling: I had a detailed discussion with the patient and/or guardian regarding the historical points, exam findings, and any diagnostic results supporting the discharge/admit diagnosis, lab results, radiology results, the need for outpatient follow up, a family practitioner, to return to the emergency department if symptoms worsen or persist or if there are any questions or concerns that arise at home. 09/15 09:48 Order name: Strep 09/15 09:48 Order name: SARS-COV-2 Antigen Rapid 09/15 11:14 Order name: COVID-19 Ag + Flu A+B Ag; Complete Time: 11:39 EDMO 09/15 11:14 Order name: Group A Streptococcus Rapid Sc; Complete Time: 11:27 EDMO 09/15 11:29 Order name: Throat Culture EDMO 09/15 09:48 Order name: Chest Pa And Lat (2 Views) XRAY; Complete Time: 12:12 kb Administered Medications: 11:14 Drug: Albuterol Inhalation 2.5 mg Inhalation once Route: Inhalation; ap3 11:14 Drug: Ipratropium Inhalation Aerosol 0.5 mg Inhalation once Route: Inhalation; ap3 Disposition Summary: 09/15/24 12:25 Discharge Ordered Notes: Location: Home kb Condition: Stable kb Diagnosis - Acute upper respiratory infection, unspecified kb Followup: kb - With: Emergency Department - When: As needed - Reason: Worsening of condition Followup: kb - With: Private Physician - When: 2 - 3 days - Reason: Recheck today's complaints, Continuance of care, Re-evaluation by your physician Discharge Instructions: - Discharge Summary Sheet kb - Upper Respiratory Infection, Adult, [id number] kb - Viral Respiratory Infection, [id number] kb Forms: - Medication Reconciliation Form kb - Antibiotic Education kb - Prescription Opioid Use kb - Patient Portal Instructions kb - Leadership Thank You Letter kb Prescriptions: - Prednisone 20 mg Oral Tablet - take 1 tablet ORAL route once daily for 5 days; 5 tablet; Refills: 0, Product kb Selection Permitted - Tessalon Perles 100 mg Oral Capsule - take 1 capsule ORAL route every 8 hours As needed; 15 capsule; Refills: 0, kb Product Selection Permitted Addendum: 09/17/2024 12:33 Co-signature as Attending Physician, Los Dickerson MD I agree with the assessment and c saucedo plan of care. Signatures: Dispatcher [employer] EDMS Malissa Noland, CAKE PUNCHER-C CAKE PUNCHER-Ckb Los Dickerson MD MD cha Prokisch, Amanda RN RN ap3 Corrections: (The following items were deleted from the chart) 09/15 11:14 09:48 Influenza Screen (A \T\ B)+[id number].BRZ ordered. [facility]
--- NOTE | 2024-09-15 12:25 | ER ---
Nurse's Notes [facility] Name: Malathi Sahu Age: 29 yrs Sex: Female : 1995 Arrival Date: 09/15/2024 Time: 09:24 Bed 12 Private MD: Diagnosis: Acute upper respiratory infection, unspecified Presentation: 09/15 09:54 Chief complaint: Patient states: she has been having cough, congestion, shortness of ap3 breath, sinus pressure, headache, and fever/chills for approx one week. Coronavirus screen: At this time, the client does not indicate any symptoms associated with coronavirus-19. Ebola Screen: No symptoms or risks identified at this time. Onset of symptoms was September 08, 2024. 09:54 Method Of Arrival: Ambulatory ap3 09:56 Initial Sepsis Screen: Does the patient meet any 2 criteria? HR > 90 bpm. Does the ap3 patient have a suspected source of infection? No. Patient's initial sepsis screen is negative. Risk Assessment: Do you want to hurt yourself or someone else? Patient reports no desire to harm self or others. 09:56 Acuity: BROCK 3 ap3 Triage Assessment: 09:55 General: Appears ill, Behavior is calm, cooperative, appropriate for age. Pain: Denies ap3 pain. Neuro: Level of Consciousness is awake, alert, obeys commands, Oriented to person, place, time, situation, Appropriate for age. Cardiovascular: Patient's skin is warm and dry. Respiratory: Airway is patent Respiratory effort is even, unlabored, Respiratory pattern is regular, symmetrical. 09:56 Respiratory: Reports shortness of breath cough that is. ap3 09:57 EENT: Reports nasal congestion. 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 - Infectious Disease History:: Denies. - Social history:: Smoking status: Patient reports the use of cigarette tobacco products, smokes one pack cigarettes per day. Screenin:57 [facility] ED Fall Risk Assessment (Adult) History of falling in the last 3 months, ap3 including since admission No falls in past 3 months (0 pts) Confusion or Disorientation No (0 pts) Intoxicated or Sedated No (0 pts) Impaired Gait No (0 pts) Mobility Assist Device Used No (0 pt) Altered Elimination No (0 pt) Score/Fall Risk Level 0 - 2 = Low Risk Oriented to surroundings, Maintained a safe environment, Educated pt \T\ family on fall prevention, incl call for assistance when getting out of bed, Assessed \T\ reinforced patient's understanding of fall precautions, Hourly rounding (assess needs \T\ fall precautionary measures) done, Used ambulatory aids as needed (educated on \T\ assisted with). Abuse screen: Denies threats or abuse. Nutritional screening: No deficits noted. Tuberculosis screening: No symptoms or risk factors identified. Assessment: 11:16 Reassessment: Patient appears in no apparent distress at this time. Patient and/or hb family updated on plan of care and expected duration. Pain level reassessed. Patient is alert, oriented x 3, equal unlabored respirations, skin warm/dry/pink. 12:49 Reassessment: Patient appears in no apparent distress at this time. Patient and/or jl7 family updated on plan of care and expected duration. Pain level reassessed. Patient is alert, oriented x 3, equal unlabored respirations, skin warm/dry/pink. Patient states feeling better. Vital Signs: 09:56 BP 148 / 100; Pulse 93; Resp 21; Temp 98.5; Pulse Ox 94% on R/A; Weight 155.58 kg; ap3 Height 5 ft. 7 in. ; Pain 0/10; 12:49 BP 135 / 84; Pulse 86; Resp 15; Pulse Ox 97% ; jl7 09:56 Body Mass Index 53.72 (155.58 kg, 170.18 cm) ap3 09:56 Pain Scale: Adult ap3 ED Course: 09:29 Patient arrived in ED. cj3 09:30 Malissa [facility]and F[facility]-C [facility] ap3 09:31 oLs Dickerson MD is Attending Physician. kb 09:56 Triage completed. ap3 09:57 Arm band placed on right wrist. ap3 10:46 Chest Pa And Lat (2 Views) XRAY In Process Unspecified. EDMS 11:15 Evelina Damian, RN is Primary Nurse. ph 11:15 SARS-COV-2 Antigen Rapid Sent. ph 11:15 Group A Streptococcus Rapid Sc Sent. ph 11:16 Lisset Escobedo, RN is Primary Nurse. hb 11:16 Patient has correct armband on for positive identification. Bed in low position. Call hb light in reach. Provided Education on: tests, result times, medicatoins. 11:16 No provider procedures requiring assistance completed. Patient did not have IV access hb during this emergency room visit. Administered Medications: 11:14 Drug: Albuterol Inhalation 2.5 mg Inhalation once Route: Inhalation; ap3 11:14 Drug: Ipratropium Inhalation Aerosol 0.5 mg Inhalation once Route: Inhalation; ap3 Medication: 12:50 VIS not applicable for this client. jl7 Outcome: 12:25 Discharge ordered by . raquel 12:49 Discharged to home ambulatory, jl7 12:49 Condition: stable 12:49 Discharge instructions given to patient, Instructed on discharge instructions, follow up and referral plans. medication usage, Demonstrated understanding of instructions, follow-up care, medications, Prescriptions given X 2, 12:50 Patient left the ED. jl7 Signatures: Dispatcher [employer] EDMS Malissa Noland, DIRECTOR OF PLANNING-C DIRECTOR OF PLANNING-CkEvelina Orellana RN RN Lisset Escobedo, RN JOSE ANGEL Kateryna Allen RN RN jl7 Jennifer Mccarthy RN RN ap3 Leslie Brooks 3
[2024-09-15 16:02] VITALS: TEMP 98.5
[2024-09-15 16:03] VITALS: BP 135/84; O2SAT 97
== END 2024-09-15 12:50 | disposition home or self-care (01) ==
LOC: ER 09:24
DX: J06.9 Acute upper respiratory infection, unspecified (principal); Z11.52 Encounter for screening for COVID-19; F17.210 Nicotine dependence, cigarettes, uncomplicated
CPT/HCPCS: 36415; 71046; 87070; 87081; 87428; 99284; J7613; J7644